=== PATIENT | male | born 1955 | race Caucasian/White ===

== ENCOUNTER 2021-11-26 11:48 | Emergency (ER) | payer SELFPAY ==
[2021-11-26 11:55] VITALS: BP 175/82; PULSE 84; RESP 18; TEMP 36.7; O2SAT 97
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
[2021-11-26] MEDS: Acetaminophen 500 MG TAB 1000 MG PO (12:13)
[2021-11-26] MEDS: Cyclobenzaprine 10 MG TAB, 3 TABS/BTL PO (12:47)
== END 2021-11-26 12:47 | disposition home or self-care (01) ==
PROVIDERS: Emergency Provider Registered Nurse Emergency
DX: G89.11 Acute pain due to trauma (principal); R07.81 Pleurodynia; R10.9 Unspecified abdominal pain; V69.40XA Driver of heavy transport vehicle injured in collision with unspecified motor vehicles in traffic accident, initial encounter
CPT/HCPCS: 99283; 71046; 71100; 99284